=== PATIENT | male | born 1995 | race Caucasian/White ===

== ENCOUNTER 2019-09-03 13:18 | Emergency (ER) | payer OTHER ==
--- NOTE | 2019-09-03 13:33 | EDM.PDOC ---
ED HPI GENERAL MEDICAL PROBLEM - General Stated Complaint: ABD PAIN Time Seen by Provider: 09/03/19 13:30 Source of Information: Reports: Patient History Limitations: Reports: No Limitations - History of Present Illness INITIAL COMMENTS - FREE TEXT/NARRATIVE: 24-year-old male who reports onset of her umbilical abdominal pain at approximately 11:30 AM today. He reports that it was a sharp and crampy type pain. It was associated with nausea but no vomiting. He reports that he tried to have a bowel movement but was unable to and he really has not even been able to pass flatus. He has had no vomiting. He ate breakfast thinking that this may help and that seemed to make his pain worse and he presents here now with ongoing pain. He now rates pain as a 4/10 but it was a 7/10 earlier. It does not radiate. It is a sharp and crampy type pain. No fevers. No chills. No cough. No nasal congestion. There are no other associated signs or symptoms. There are no other modifying factors. Onset: Today (11:30 AM) Duration: Constant Location: Reports: Abdomen Quality: Reports: Sharp (And crampy) Severity: Moderate Improves with: Reports: None Worsens with: Reports: Eating, Other (Palpation) Context: Reports: Other Associated Symptoms: Reports: Nausea/Vomiting Treatments SURVEY MANAGER: Reports: Other (see below) (Nothing) MID ABDOMINAL AREA Pain Score (Numeric/FACES): 4 - Related Data Allergies Allergy/AdvReac Type Severity Reaction Status Date / Time No Known Allergies Allergy Verified 09/03/19 13:38 Home Meds: Home Meds NK [No Known Home Meds] 01/02/16 [History] Past Medical History Gastrointestinal History: Reports: Other (See Below) (Pyloric stenosis) - Past Surgical History GI Surgical History: Reports: Other (See Below) (Pyloromyotomy) Social & Family History - Tobacco Use Smoking Status *Q: Current Every Day Smoker - Alcohol Use Alcohol Use History: Yes Alcohol Use Frequency: Rarely - Recreational Drug Use Recreational Drug Use: Yes Drug Use in Last 12 Months: Yes Recreational Drug Type: Reports: Marijuana/Hashish (Smokes marijuana daily) - Living Situation & Occupation Living situation: Reports: Single Occupation: Employed (Works at [employer] ED ROS GENERAL - Review of Systems Review Of Systems: See Below Constitutional: Reports: No Symptoms HEENT: Reports: No Symptoms Respiratory: Reports: No Symptoms Cardiovascular: Reports: No Symptoms Endocrine: Reports: No Symptoms GI/Abdominal: Reports: Abdominal Pain, Nausea. Denies: Vomiting : Reports: No Symptoms Musculoskeletal: Reports: No Symptoms Skin: Reports: No Symptoms Neurological: Reports: No Symptoms Psychiatric: Reports: No Symptoms Hematologic/Lymphatic: Reports: No Symptoms Immunologic: Reports: No Symptoms ED EXAM, GI/ABD - Physical Exam Exam: See Below Exam Limited By: No Limitations General Appearance: Alert, WD/WN, Mild Distress Eyes: Bilateral: Normal Appearance, EOMI Ears: Normal External Exam, Hearing Grossly Normal Nose: Normal Inspection, Normal Mucosa, No Blood Throat/Mouth: Normal Inspection, Normal Oropharynx, Normal Voice, No Airway Compromise Head: Atraumatic, Normocephalic Neck: Normal Inspection, Supple, Non-Tender, Full Range of Motion Respiratory/Chest: No Respiratory Distress, Lungs Clear, Normal Breath Sounds, No Accessory Muscle Use, Chest Non-Tender Cardiovascular: Normal Peripheral Pulses, Regular Rate, Rhythm, No Murmur GI/Abdominal Exam: Normal Bowel Sounds, Soft, No Distention, Tender (In the periumbilical region and the right upper quadrant.) (Male) Exam: No Hernia Back Exam: Normal Inspection. No: CVA Tenderness (R), CVA Tenderness (L) Extremities: Normal Inspection, Normal Range of Motion, Non-Tender, No Pedal Edema, Normal Capillary Refill Neurological: Alert, Oriented, CN II-XII Intact, Normal Cognition Psychiatric: Normal Affect Skin Exam: Warm, Dry, Intact, Normal Color, No Rash Course - Vital Signs Last Recorded V/S: Last Vital Signs Temp 36.6 C 09/03/19 13:20 Pulse 65 09/03/19 13:20 Resp 18 09/03/19 13:20 BP 117/64 09/03/19 13:20 Pulse Ox 100 09/03/19 13:20 - Orders/Labs/Meds Orders: Active Orders 24 hr Category Date Time Status Sodium Chloride 0.9% [Saline Flush] Med 09/03/19 13:41 Active 10 ml FLUSH ASDIRECTED PRN Peripheral IV Insertion Adult [OM.PC] Routine Oth 09/03/19 13:41 Ordered Medication Orders Sodium Chloride (Saline Flush) 10 ml FLUSH ASDIRECTED PRN PRN Reason: Keep Vein Open Labs: Laboratory Tests 09/03/19 09/03/19 09/03/19 Range/Units 13:55 13:55 13:55 WBC 10.2 (4.5-12.0) X10-3/uL RBC 5.50 (4.30-5.75) x10(6)uL Hgb 16.3 (13.5-17.8) g/dL Hct 47.9 (30.0-51.3) % MCV 87.1 (80-96) fL MCH 29.7 (27.7-33.6) pg MCHC 34.0 (32.2-35.4) g/dL RDW 12.2 (11.5-15.5) % Plt Count 257 (125-369) X10(3)uL MPV 9.1 (7.4-10.4) fL Neut % (Auto) 67.8 (46-82) % Lymph % (Auto) 20.3 (13-37) % Cross % (Auto) 7.9 (4-12) % Eos % (Auto) 3 (1.0-5.0) % Baso % (Auto) 1 (0-2) % Neut # (Auto) 6.9 (1.6-8.3) # Lymph # (Auto) 2.1 (0.6-5.0) # Cross # (Auto) 0.8 (0.0-1.3) # Eos # (Auto) 0.3 (0.0-0.8) # Baso # (Auto) 0.1 (0.0-0.2) # Sodium 142 (135-145) mmol/L Potassium 4.1 (3.5-5.3) mmol/L Chloride 105 (100-110) mmol/L Carbon Dioxide 30 (21-32) mmol/L BUN 11 (7-18) mg/dL Creatinine 1.0 (0.70-1.30) mg/dL Est Cr Clr Drug Dosing TNP Estimated GFR (MDRD) > 60 (>60) BUN/Creatinine Ratio 11.0 (9-20) Glucose 78 L (80-116) mg/dL Calcium 8.5 L (8.6-10.2) mg/dL Total Bilirubin 0.5 (0.1-1.3) mg/dL AST 15 (5-25) IU/L ALT 21 (12-36) U/L Alkaline Phosphatase 82 (56-112) IU/L C-Reactive Protein < 0.2 L (0.5-0.9) mg/dL Total Protein 7.2 (6.0-8.0) g/dL Albumin 3.9 (3.5-5.2) g/dL Globulin 3.3 g/dL Albumin/Globulin Ratio 1.2 Lipase 120 (73-393) U/L Urine Color (YELLOW) Urine Appearance (CLEAR) Urine pH (5.0-6.5) Ur Specific Gwynn (1.010-1.025) Urine Protein (NEGATIVE) mg/dL Urine Glucose (UA) (NORMAL) mg/dL Urine Ketones (NEGATIVE) mg/dL Urine Occult Blood (NEGATIVE) Urine Nitrite (NEGATIVE) Urine Bilirubin (NEGATIVE) Urine Urobilinogen (NEGATIVE) mg/dL Ur Leukocyte Esterase (NEGATIVE) Urine RBC (0-5) Urine WBC (0-5) Ur Squamous Epith Cells (NS,R,O) Urine Bacteria (NS) Urine Mucus (NS) 09/03/19 Range/Units 14:39 WBC (4.5-12.0) X10-3/uL RBC (4.30-5.75) x10(6)uL Hgb (13.5-17.8) g/dL Hct (30.0-51.3) % MCV (80-96) fL MCH (27.7-33.6) pg MCHC (32.2-35.4) g/dL RDW (11.5-15.5) % Plt Count (125-369) X10(3)uL MPV (7.4-10.4) fL Neut % (Auto) (46-82) % Lymph % (Auto) (13-37) % Cross % (Auto) (4-12) % Eos % (Auto) (1.0-5.0) % Baso % (Auto) (0-2) % Neut # (Auto) (1.6-8.3) # Lymph # (Auto) (0.6-5.0) # Cross # (Auto) (0.0-1.3) # Eos # (Auto) (0.0-0.8) # Baso # (Auto) (0.0-0.2) # Sodium (135-145) mmol/L Potassium (3.5-5.3) mmol/L Chloride (100-110) mmol/L Carbon Dioxide (21-32) mmol/L BUN (7-18) mg/dL Creatinine (0.70-1.30) mg/dL Est Cr Clr Drug Dosing Estimated GFR (MDRD) (>60) BUN/Creatinine Ratio (9-20) Glucose (80-116) mg/dL Calcium (8.6-10.2) mg/dL Total Bilirubin (0.1-1.3) mg/dL AST (5-25) IU/L ALT (12-36) U/L Alkaline Phosphatase (56-112) IU/L C-Reactive Protein (0.5-0.9) mg/dL Total Protein (6.0-8.0) g/dL Albumin (3.5-5.2) g/dL Globulin g/dL Albumin/Globulin Ratio Lipase (73-393) U/L Urine Color Yellow (YELLOW) Urine Appearance Clear (CLEAR) Urine pH 5.0 (5.0-6.5) Ur Specific Gwynn 1.020 (1.010-1.025) Urine Protein Negative (NEGATIVE) mg/dL Urine Glucose (UA) Normal (NORMAL) mg/dL Urine Ketones Negative (NEGATIVE) mg/dL Urine Occult Blood Negative (NEGATIVE) Urine Nitrite Negative (NEGATIVE) Urine Bilirubin Negative (NEGATIVE) Urine Urobilinogen Normal (NEGATIVE) mg/dL Ur Leukocyte Esterase Negative (NEGATIVE) Urine RBC 0-5 (0-5) Urine WBC 0-5 (0-5) Ur Squamous Epith Cells Occasional (NS,R,O) Urine Bacteria Rare H (NS) Urine Mucus Few H (NS) Meds: Medications Generic Name Dose Route Start Last Admin Trade Name Freq PRN Reason Stop Dose Admin Sodium Chloride 10 ml 09/03/19 13:41 Saline Flush FLUSH ASDIRECTED PRN Keep Vein Open Discontinued Medications Generic Name Dose Route Start Last Admin Trade Name Freq PRN Reason Stop Dose Admin Sodium Chloride 1,000 mls @ 999 mls/hr 09/03/19 13:42 Normal Saline IV 09/03/19 14:42 .BOLUS ONE Ondansetron HCl 4 mg 09/03/19 13:42 Zofran IVPUSH 09/03/19 13:43 ONETIME ONE - Re-Assessments/Exams Free Text/Narrative Re-Assessment/Exam: 09/03/19 15:20: Patient had refused the IV and refused the Zofran. He does report that his pain is somewhat improved but has not gone away. He reports as about a 2/10 at this point and is still in his epigastrium and right upper quadrant. His blood tests are all reassuringly normal. I am awaiting a urine test. At this point, I discussed options with the patient. He is still refusing any medication or treatment at this time. He was offered a CT scan and would not want that performed at this time as well. The other option would be for him to go home and drink plenty of fluids and rest and if his symptoms worsen he could come back and that is what he was in favor of. I am awaiting his urine to return prior to discharge. 09/03/19 15:30: Urinalysis was negative. I will discharge the patient as per his request and with instruction for him to come back to the emergency department for worsening pain, fever, vomiting or any other concerning sign or symptom. He understands that the etiology of his abdominal pain is unclear at this point but he would prefer discharge with continued self observation at home. Departure - Departure Time of Disposition: 15:35 Disposition: Home, Self-Care 01 Condition: Good Clinical Impression: Abdominal pain of unknown etiology - Discharge Information Instructions: Abdominal Pain, Adult, [id number] Referrals: Salbador Steele MD [Primary Care Provider] - Additional Instructions: Your blood tests and urine tests were all reassuringly normal. As we discussed, I am unsure of the cause of your abdominal pain. You had refused any treatment and did not want any further evaluation at this time. You should rest. You should drink plenty of fluids. Back to the emergency department for increasing abdominal pain, vomiting, fever or any other concerning sign or symptom. Sepsis Event Note - Focused Exam Vital Signs: Vital Signs Temp Pulse Resp BP Pulse Ox 09/03/19 13:20 36.6 C 65 18 117/64 100 Date Exam was Performed: 09/03/19 Time Exam was Performed: 15:33 - My Orders Last 24 Hours: My Active Orders 09/03/19 13:41 Sodium Chloride 0.9% [Saline Flush] 10 ml FLUSH ASDIRECTED PRN Peripheral IV Insertion Adult [OM.PC] Routine - Assessment/Plan Last 24 Hours: My Active Orders 09/03/19 13:41 Sodium Chloride 0.9% [Saline Flush] 10 ml FLUSH ASDIRECTED PRN Peripheral IV Insertion Adult [OM.PC] Routine
[2019-09-03] MEDS ORDERED: Sodium Chloride 0.9% 10 ML Syringe FLUSH PRN (13:41)
[2019-09-03] MEDS ORDERED: Sodium Chloride 0.9% 1,000 ML IV ONE (13:42)
[2019-09-03] MEDS ORDERED: Ondansetron 4 MG/2 ML SDV IVPUSH ONE (13:42)
[2019-09-03 15:50] VITALS: BP 100/62; PULSE 63
== END 2019-09-03 15:49 | disposition home or self-care (01) ==
LOC: FB.ED 13:18
DX: R10.33 Periumbilical pain (principal); R10.11 Right upper quadrant pain
CPT/HCPCS: 36415; 80053; 81001; 83690; 85025; 86140; 99284

== ENCOUNTER 2020-12-30 23:32 | Emergency (ER) | payer BC, OTHER ==
[2020-12-30] MEDS ORDERED: Cephalexin 500 MG Cap PO STA (23:38)
--- NOTE | 2020-12-30 23:44 | EDM.PDOC ---
ED HPI GENERAL MEDICAL PROBLEM - General Stated Complaint: INFECTED RIGHT ARM Time Seen by Provider: 12/30/20 23:35 Source of Information: Reports: Patient History Limitations: Reports: No Limitations - History of Present Illness INITIAL COMMENTS - FREE TEXT/NARRATIVE: Patient presented to the ED because of pain, redness, swelling on the right arm. He noticed a rash a week ago and then a pus came out and now it's hard and tender. - Related Data Allergies Allergy/AdvReac Type Severity Reaction Status Date / Time No Known Allergies Allergy Verified 09/03/19 13:38 Home Meds: Home Meds cephALEXin [Keflex] 500 mg PO Q8H #30 cap 12/30/20 [Rx] Past Medical History - Past Health History Medical/Surgical History: Denies Medical/Surgical History Gastrointestinal History: Reports: Other (See Below) (Pyloric stenosis) Other Gastrointestinal History: MUSCLE CLIP IN THE ABDOMEN Psychiatric History: Reports: Anxiety, Depression - Past Surgical History GI Surgical History: Reports: Other (See Below) (Pyloromyotomy) Social & Family History - Family History Family Medical History: No Pertinent Family History - Caffeine Use Caffeine Use: Reports: Coffee, Energy Drinks, Soda, Tea - Living Situation & Occupation Living situation: Reports: Single Occupation: Employed (Works at [employer] ED ROS GENERAL - Review of Systems Review Of Systems: See Below Constitutional: Reports: No Symptoms HEENT: Reports: No Symptoms Respiratory: Reports: No Symptoms Cardiovascular: Reports: No Symptoms Endocrine: Reports: No Symptoms GI/Abdominal: Reports: No Symptoms : Reports: No Symptoms Musculoskeletal: Reports: No Symptoms Skin: Reports: Erythema Neurological: Reports: No Symptoms Psychiatric: Reports: No Symptoms ED EXAM, SKIN/RASH Exam: See Below Exam Limited By: No Limitations General Appearance: Alert, No Apparent Distress Ears: Normal External Exam, Normal Canal Nose: Normal Inspection, Normal Mucosa, No Blood Throat/Mouth: Normal Inspection, Normal Lips, Normal Teeth Head: Atraumatic, Normocephalic Neck: Normal Inspection, Supple, Non-Tender, Full Range of Motion Respiratory/Chest: No Respiratory Distress, Lungs Clear, Normal Breath Sounds, No Accessory Muscle Use Cardiovascular: Normal Peripheral Pulses, Regular Rate, Rhythm, No Edema GI/Abdominal: Normal Bowel Sounds, Soft, Non-Tender, No Organomegaly Back Exam: Normal Inspection, Full Range of Motion Extremities: Normal Inspection, Normal Range of Motion, Non-Tender, No Pedal Edema, Normal Capillary Refill Neurological: Alert, Oriented, CN II-XII Intact, Normal Cognition, Normal Reflexes Psychiatric: Normal Affect Skin: Erythema Course - Vital Signs Text/Narrative:: Keflex 500 mg PO x1 - Orders/Labs/Meds Orders: Active Orders 24 hr Category Date Time Status cephALEXin [Keflex] Med 12/30/20 23:38 Stat 500 mg PO NOW STA Departure - Departure Time of Disposition: 23:45 Disposition: Home, Self-Care 01 Condition: Good Clinical Impression: Cellulitis - Discharge Information Prescriptions: cephALEXin [Keflex] 500 mg PO Q8H #30 cap Instructions: Cellulitis, Adult, [id number] Additional Instructions: Please read discharge instructions on cellulitis(skin infection) Take ibuprofen 800 mg with tylenol [id number] mg every 8 hours as needed for pain Kelfex 500 mg 3 times daily for 10 days(take with food because it can cause an upset stomach) Follow up as needed - My Orders Last 24 Hours: My Active Orders 12/30/20 23:38 cephALEXin [Keflex] 500 mg PO NOW STA - Assessment/Plan Last 24 Hours: My Active Orders 12/30/20 23:38 cephALEXin [Keflex] 500 mg PO NOW STA
[2020-12-30 23:58] VITALS: BP 113/67; PULSE 90
== END 2020-12-30 23:47 | disposition home or self-care (01) ==
LOC: FB.ED 23:32
DX: L03.113 Cellulitis of right upper limb (principal)
CPT/HCPCS: 99283; A9270